=== PATIENT | male | born 1975 | race African-American/Black ===

== ENCOUNTER 2018-03-05 08:34 | Inpatient (IN) | payer OTHER ==
[2018-03-05 09:11] VITALS: BMI 20.9
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
[2018-03-05] MEDS ORDERED: chlordiazePOXIDE HCL 25 MG CAPSULE PO ONE (19:39)
[2018-03-05] MEDS ORDERED: chlordiazePOXIDE HCL 25 MG CAPSULE PO PRN (19:39)
[2018-03-05] MEDS ORDERED: IBUPROFEN 400 MG TABLET (FP) PO PRN (19:40)
[2018-03-05] MEDS ORDERED: MAGNESIUM HYDROX 2400MG/30ML ORAL SUSPENSION 30 ML CUP PO PRN (19:40)
[2018-03-05] MEDS ORDERED: ACETAMINOPHEN 325 MG TABLET (FP) PO PRN ×2 (19:40→20:13)
[2018-03-05] MEDS ORDERED: MAG HYDROX/AL HYDROX/SIMETH 30 ML UNIT-DOSE CUP PO PRN (19:40)
[2018-03-05] MEDS ORDERED: MENTHOL/PHENOL 1 EACH UD MM PRN (19:40)
[2018-03-05] MEDS ORDERED: LOPERAMIDE HCL 2 MG CAPSULE PO PRN (19:40)
[2018-03-05] MEDS ORDERED: MAGNESIUM CITRATE 300 ML BOTTLE PO PRN (19:40)
[2018-03-05] MEDS ORDERED: NICOTINE POLACRILEX 2 MG GUM BUC PRN (19:40)
[2018-03-05] MEDS ORDERED: MELATONIN 5 MG TABLETS PO PRN (22:00)
[2018-03-05] MEDS: THIAMINE HCL 100 MG TABLET (FP) PO SCH (22:09)
[2018-03-05] MEDS: chlordiazePOXIDE HCL 25 MG CAPSULE PO SCH (22:16)
[2018-03-06] MEDS: chlordiazePOXIDE HCL 25 MG CAPSULE PO SCH ×4 (05:44→22:27)
[2018-03-06] MEDS: PRENATAL VITAMINS W/ FOLIC ACID TABLET (FP) PO SCH (10:24)
[2018-03-06] MEDS: NICOTINE 14 MG/24 HOURS TOPICAL PATCH TD SCH (10:25)
[2018-03-06 10:51] LABS: ALBUMIN 3.3 g/dl (3.4-5.0); ALK PHOS 79 U/L (45-117); ANION GAP 7 MMOL/L (8-16); BILIRUBIN,TOTAL 0.4 mg/dL (0.2-1); BLOOD UREA NITROGEN 11 mg/dL (7-18); CALCIUM 8.4 mg/dL (8.5-10.1); CHLORIDE 109 mmol/L (98-107); CO2 26 mmol/L (21-32); CREATININE 0.9 mg/dL (0.55-1.3); GLUCOSE,RANDOM 109 mg/dL (74-106); SGOT/AST 37 U/L (15-37); SGPT/ALT 56 U/L (13-61); SODIUM 142 mmol/L (136-145); TOT PROT 6.5 g/dl (6.4-8.2)
[2018-03-06 11:08] LABS: HEMATOCRIT 42.2 % (35.4-49); HEMOGLOBIN 13.6 GM/dL (11.7-16.9); MCH 30.3 pg (25.7-33.7); MCHC 32.3 g/dl (32.0-35.9); MEAN CELL VOLUME 93.8 fl (80-96); PLATELET COUNT 164 K/MM3 (134-434); RDW 14.5 % (11.9-15.9); WHITE BLOOD COUNT 6.2 K/mm3 (4.0-10.0)
--- NOTE | 2018-03-06 16:14 | PN ---
S CIWA - CIWA Score Nausea/Vomitin Muscle Tremors: 4-Moderate,w/Arms Extend Anxiety: 4-Mod. Anxious/Guarded Agitation: 4-Moderately Restless Paroxysmal Sweats: 3 Orientation: 0-Oriented Tacttile Disturbances: 0-None Auditory Disturbances: 0-None Visual Disturbances: 0-None Headache: 0-None Present CIWA-Ar Total Score: 17 BHS Progress Note (SOAP) Subjective: Anxious, interrupted sleep Objective: 03/06/18 16:13 Last Vital Signs Temp Pulse Resp BP Pulse Ox 97.4 F L 64 18 119/64 03/06/18 13:32 03/06/18 13:32 03/06/18 13:32 03/06/18 13:32 Laboratory Tests 03/06/18 03/06/18 03/06/18 07:50 07:50 07:50 WBC 6.2 RBC 4.50 Hgb 13.6 Hct 42.2 MCV 93.8 MCH 30.3 MCHC 32.3 RDW 14.5 Plt Count 164 MPV 11.0 Sodium 142 Potassium 4.0 Chloride 109 H Carbon Dioxide 26 Anion Gap 7 L BUN 11 Creatinine 0.9 Creat Clearance w eGFR > 60 Random Glucose 109 H Calcium 8.4 L Total Bilirubin 0.4 AST 37 ALT 56 Alkaline Phosphatase 79 Total Protein 6.5 Albumin 3.3 L RPR Titer HIV 1&2 Antibody Screen Negative HIV P24 Antigen Negative 03/06/18 07:50 WBC RBC Hgb Hct MCV MCH MCHC RDW Plt Count MPV Sodium Potassium Chloride Carbon Dioxide Anion Gap BUN Creatinine Creat Clearance w eGFR Random Glucose Calcium Total Bilirubin AST ALT Alkaline Phosphatase Total Protein Albumin RPR Titer Nonreactive HIV 1&2 Antibody Screen HIV P24 Antigen Labs reviewed Assessment: 03/06/18 16:14 Withdrawal symptoms Plan: Continue detox Encouraged PO water intake
--- NOTE | 2018-03-06 16:58 | EKG ---
Test Reason : Blood Pressure : / mmHG Vent. Rate : 069 BPM Atrial Rate : 069 BPM P-R Int : 138 ms QRS Dur : 086 ms QT Int : 392 ms P-R-T Axes : 072 078 066 degrees QTc Int : 420 ms SINUS RHYTHM WITH MARKED SINUS ARRHYTHMIA NONSPECIFIC ST ABNORMALITY ABNORMAL ECG NO PREVIOUS ECGS AVAILABLE Confirmed by MD Jeyson, Chapito ([id number]) on 03/06/2018 4:58:28 PM Referred By: Confirmed By:Chapito Benítez MD
[2018-03-06] MEDS: THIAMINE HCL 100 MG TABLET (FP) PO SCH (22:27)
[2018-03-07] MEDS: chlordiazePOXIDE HCL 25 MG CAPSULE PO SCH ×3 (05:50→17:17)
[2018-03-07] MEDS: NICOTINE 14 MG/24 HOURS TOPICAL PATCH TD SCH (10:20)
[2018-03-07] MEDS: PRENATAL VITAMINS W/ FOLIC ACID TABLET (FP) PO SCH (10:20)
--- NOTE | 2018-03-07 14:56 | PN ---
[facility] CIWA - CIWA Score Nausea/Vomitin-No Nausea/No Vomiting Muscle Tremors: None Anxiety: 4-Mod. Anxious/Guarded Agitation: 3 Paroxysmal Sweats: 3 Orientation: 2-Disoriented Date<2 days Tacttile Disturbances: 3-Moderate Itch/Numb/Burn Auditory Disturbances: 0-None Visual Disturbances: 0-None Headache: 0-None Present CIWA-Ar Total Score: 15 BHS Progress Note (SOAP) Subjective: Sweating, Anxious. Objective: PATIENT A & O X 2 (UNCERTAIN ABOUT CURRENT DAY / DATE). PATIENT OBSERVED AMBULATING ON UNIT. NO ACUTE DISTRESS. 03/07/18 14:56 Vital Signs Temperature 98.6 F 03/07/18 13:29 Pulse Rate 70 03/07/18 13:29 Respiratory Rate 18 03/07/18 13:29 Blood Pressure 122/76 03/07/18 13:29 O2 Sat by Pulse Oximetry (%) Laboratory Tests 03/06/18 03/06/18 03/06/18 07:50 07:50 07:50 WBC 6.2 RBC 4.50 Hgb 13.6 Hct 42.2 MCV 93.8 MCH 30.3 MCHC 32.3 RDW 14.5 Plt Count 164 MPV 11.0 Sodium 142 Potassium 4.0 Chloride 109 H Carbon Dioxide 26 Anion Gap 7 L BUN 11 Creatinine 0.9 Creat Clearance w eGFR > 60 Random Glucose 109 H Calcium 8.4 L Total Bilirubin 0.4 AST 37 ALT 56 Alkaline Phosphatase 79 Total Protein 6.5 Albumin 3.3 L RPR Titer HIV 1&2 Antibody Screen Negative HIV P24 Antigen Negative 03/06/18 07:50 WBC RBC Hgb Hct MCV MCH MCHC RDW Plt Count MPV Sodium Potassium Chloride Carbon Dioxide Anion Gap BUN Creatinine Creat Clearance w eGFR Random Glucose Calcium Total Bilirubin AST ALT Alkaline Phosphatase Total Protein Albumin RPR Titer Nonreactive HIV 1&2 Antibody Screen HIV P24 Antigen LABS NOTED. Assessment: 03/07/18 14:56 WITHDRAWAL SYMPTOMS. Plan: CONTINUE DETOX.
[2018-03-07] MEDS: chlordiazePOXIDE 5 MG CAPSULE PO SCH (22:14)
[2018-03-07] MEDS: THIAMINE HCL 100 MG TABLET (FP) PO SCH (22:15)
[2018-03-08] MEDS: chlordiazePOXIDE 5 MG CAPSULE PO SCH (05:29)
[2018-03-08 09:10] VITALS: BP 120/86; PULSE 74; TEMP 97.4
--- NOTE | 2018-03-08 10:28 | DS ---
[facility] Detox Discharge Summary Admission Date: 03/05/18 Discharge Date: 03/08/18 - History Present History: Alcohol Dependence Additional Comments: 42 years old male admitted on 03/05/18 for alcohol withdrawal stabilization patient reported feeling better able to manage mild alcohol withdrawal sx preferred to go home today left hand cast intact fingers warm no swell denies pain elevating left arm above head patient acknowledged follow up with provider in the community within 4-6-8 weeks for fracture healing process and cast removal ambulate with cane transportation arranged from facility to home Pertinent Past History: patient stated that [facility] near by him and services were satisfied taking depakote for bipolar disorder admitted non adherence strong recommend visiting [facility] community health services for medical mental and addiction issues - Physical Exam Results Vital Signs: Vital Signs Temperature 97.4 F L 03/08/18 09:09 Pulse Rate 74 03/08/18 09:09 Respiratory Rate 18 03/08/18 09:09 Blood Pressure 120/86 03/08/18 09:09 O2 Sat by Pulse Oximetry (%) Pertinent Admission Physical Exam Findings: alcohol withdrawal sx Vital Signs Temperature 97.4 F L 03/08/18 09:09 Pulse Rate 74 03/08/18 09:09 Respiratory Rate 18 03/08/18 09:09 Blood Pressure 120/86 03/08/18 09:09 O2 Sat by Pulse Oximetry (%) Laboratory Last Values WBC 6.2 K/mm3 (4.0-10.0) 03/06/18 07:50 RBC 4.50 M/mm3 (4.00-5.60) 03/06/18 07:50 Hgb 13.6 GM/dL (11.7-16.9) 03/06/18 07:50 Hct 42.2 % (35.4-49) 03/06/18 07:50 MCV 93.8 fl (80-96) 03/06/18 07:50 MCH 30.3 pg (25.7-33.7) 03/06/18 07:50 MCHC 32.3 g/dl (32.0-35.9) 03/06/18 07:50 RDW 14.5 % (11.9-15.9) 03/06/18 07:50 Plt Count 164 K/MM3 (134-434) 03/06/18 07:50 MPV 11.0 fl (7.5-11.1) 03/06/18 07:50 Sodium 142 mmol/L (136-145) 03/06/18 07:50 Potassium 4.0 mmol/L (3.5-5.1) 03/06/18 07:50 Chloride 109 mmol/L (98-107) H 03/06/18 07:50 Carbon Dioxide 26 mmol/L (21-32) 03/06/18 07:50 Anion Gap 7 MMOL/L (8-16) L 03/06/18 07:50 BUN 11 mg/dL (7-18) 03/06/18 07:50 Creatinine 0.9 mg/dL (0.55-1.3) 03/06/18 07:50 Creat Clearance w eGFR > 60 (>60) 03/06/18 07:50 Random Glucose 109 mg/dL (74-106) H 03/06/18 07:50 Calcium 8.4 mg/dL (8.5-10.1) L 03/06/18 07:50 Total Bilirubin 0.4 mg/dL (0.2-1) 03/06/18 07:50 AST 37 U/L (15-37) 03/06/18 07:50 ALT 56 U/L (13-61) 03/06/18 07:50 Alkaline Phosphatase 79 U/L (45-117) 03/06/18 07:50 Total Protein 6.5 g/dl (6.4-8.2) 03/06/18 07:50 Albumin 3.3 g/dl (3.4-5.0) L 03/06/18 07:50 RPR Titer Nonreactive (NONREACTIVE) 03/06/18 07:50 HIV 1&2 Antibody Screen Negative 03/06/18 07:50 HIV P24 Antigen Negative 03/06/18 07:50 lab noted encourage ca++ rich food - Treatment Hospital Course: Detox Protocol Followed, Detoxed Safely, Responded well, Discharged Condition Good, Rehab Referral Accepted Patient has Accepted a Rehab Referral to: [facility] services - Medication Discharge Medications: Ambulatory Orders Benztropine Mesylate [Cogentin -] 2 mg PO DAILY 03/05/18 Divalproex [Depakote -] 500 mg PO BID 03/05/18 Fluphenazine HCl [Prolixin -] 5 mg PO TID 03/05/18 - Diagnosis (1) Bipolar II disorder Current Visit: Yes Status: Suspected (2) Alcohol dependence with uncomplicated withdrawal Current Visit: Yes Status: Acute (3) Nicotine dependence, uncomplicated Current Visit: Yes Status: Acute Qualifiers: Nicotine product type: cigarettes Qualified Code(s): F17.210 - Nicotine dependence, cigarettes, uncomplicated (4) Metacarpal bone fracture Current Visit: Yes Status: Acute Qualifiers: Encounter type: subsequent encounter Metacarpal bone: unspecified metacarpal Fracture type: closed Metacarpal location: unspecified portion of metacarpal Fracture morphology: unspecified fracture morphology Fracture healing: with nonunion Qualified Code(s): S62.309K - Unspecified fracture of unspecified metacarpal bone, subsequent encounter for fracture with nonunion (5) Status post amputation of finger Current Visit: Yes Status: Chronic Qualifiers: Laterality: unspecified laterality Qualified Code(s): Z89.029 - Acquired absence of unspecified finger(s) - AMA Did Patient Leave Against Medical Advice: No
[2018-03-08] MEDS ORDERED: chlordiazePOXIDE HCL 10 MG CAPSULE PO SCH (23:00)
== END 2018-03-08 10:30 | disposition home or self-care (01) | DRG 775 ==
LOC: YASAS 08:34 → Y3N 19:36
PROC: HZ2ZZZZ Detoxification Services for Substance Abuse Treatment (ICD-10-PCS; principal; 2018-03-05)
DX: F10.230 Alcohol dependence with withdrawal, uncomplicated (principal); F12.20 Cannabis dependence, uncomplicated; F17.210 Nicotine dependence, cigarettes, uncomplicated; F31.81 Bipolar II disorder; H55.00 Unspecified nystagmus; S62.39 Other fracture of other metacarpal bone; X58.XXXD Exposure to other specified factors, subsequent encounter; Z89.029 Acquired absence of unspecified finger(s); Z86.69 Personal history of other diseases of the nervous system and sense organs
CPT/HCPCS: 36415; 80053; 85027; 86593; 87389; 93005; 93010

== ENCOUNTER 2018-03-05 10:27 | Emergency (ER) | payer OTHER ==
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
[2018-03-05 11:07] VITALS: BMI 21.6
[2018-03-05] MEDS ORDERED: ACETAMINOPHEN 325 MG TABLET (FP) PO ONE (12:04)
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
[2018-03-05] MEDS ORDERED: ACETAMINOPHEN 325 MG TABLET (FP) ONE (12:26)
[2018-03-05 12:43] LABS: BASO % 0.4 % (0-2.0); HEMATOCRIT 38.2 % (35.4-49); HEMOGLOBIN 12.4 GM/dL (11.7-16.9); MCH 30.1 pg (25.7-33.7); MCHC 32.4 g/dl (32.0-35.9); MEAN PLT VOLUME 10.1 fl (7.5-11.1); MONO % 9.2 % (3.8-10.2); NEUT % 52.4 % (42.8-82.8); PLATELET COUNT 142 K/MM3 (134-434); RBC 4.11 M/mm3 (4.00-5.60); RDW 14.1 % (11.9-15.9); WHITE BLOOD COUNT 5.6 K/mm3 (4.0-10.0)
[2018-03-05 13:37] LABS: ALBUMIN 3.2 g/dl (3.4-5.0); ALK PHOS 77 U/L (45-117); ANION GAP 6 MMOL/L (8-16); BILIRUBIN,TOTAL 0.3 mg/dL (0.2-1); BLOOD UREA NITROGEN 10 mg/dL (7-18); CALCIUM 8.1 mg/dL (8.5-10.1); CHLORIDE 108 mmol/L (98-107); CO2 25 mmol/L (21-32); CREATININE 0.8 mg/dL (0.55-1.3); GLUCOSE,RANDOM 82 mg/dL (74-106); POTASSIUM 3.9 mmol/L (3.5-5.1); SGOT/AST 47 U/L (15-37); SGPT/ALT 59 U/L (13-61); SODIUM 139 mmol/L (136-145); TOT PROT 6.2 g/dl (6.4-8.2)
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
[2018-03-05 15:20] VITALS: BP 100/60; PULSE 80; TEMP 98.7
[2018-03-06 00:21] LABS: COCAINE, UR NEGATIVE ng/ml (CUTOFF=300); METHADONE, UR NEGATIVE ng/ml (CUTOFF=300); OPIATES, URI NEGATIVE ng/ml (CUTOFF=300); PHENCYCLIDINE,URINE NEGATIVE ng/ml (CUTOFF=25); URINE AMPHETAMINES NEGATIVE ng/ml (CUTOFF=500); URINE BARBITURATES NEGATIVE ng/ml (CUTOFF=200); URINE BENZODIAZEPINES NEGATIVE ng/ml (CUTOFF=200)
== END 2018-03-05 16:13 | disposition home or self-care (01) ==
LOC: JER 10:27
PROC: 2W3DX1Z Immobilization of Left Lower Arm using Splint (ICD-10-PCS; principal; 2018-03-05)
DX: S62.315A Displaced fracture of base of fourth metacarpal bone, left hand, initial encounter for closed fracture (principal); S62.317A Displaced fracture of base of fifth metacarpal bone, left hand, initial encounter for closed fracture; W10.8XXA Fall (on) (from) other stairs and steps, initial encounter; Y93.89 Activity, other specified; Y92.038 Other place in apartment as the place of occurrence of the external cause; Y99.8 Other external cause status; F10.20 Alcohol dependence, uncomplicated; F12.20 Cannabis dependence, uncomplicated; F19.20 Other psychoactive substance dependence, uncomplicated
CPT/HCPCS: 36415; 70450-TC; 73130-TC-LT-FY; 80053; 80307; 82550; 82553; 84484; 85025; 99282-25

== ENCOUNTER 2018-04-09 09:03 | Inpatient (IN) | payer OTHER ==
[2018-04-09 09:17] VITALS: BMI 22.6
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
[2018-04-09] MEDS ORDERED: P-EPHED 60MG/TRIPROLIDI 2.5MG TABLET PO PRN (13:50)
[2018-04-09] MEDS ORDERED: guaiFENesin/D-METHORPHAN HB 10 ML UNIT-DOSE CUPS PO PRN (13:50)
[2018-04-09] MEDS ORDERED: MAGNESIUM HYDROX 2400MG/30ML ORAL SUSPENSION 30 ML CUP PO PRN (13:50)
[2018-04-09] MEDS ORDERED: MAG HYDROX/AL HYDROX/SIMETH 30 ML UNIT-DOSE CUP PO PRN (13:50)
[2018-04-09] MEDS ORDERED: MENTHOL/PHENOL 1 EACH UD MM PRN (13:50)
[2018-04-09] MEDS ORDERED: NICOTINE POLACRILEX 2 MG GUM BUC PRN (13:50)
[2018-04-09] MEDS ORDERED: LOPERAMIDE HCL 2 MG CAPSULE PO PRN (13:50)
[2018-04-09] MEDS ORDERED: MAGNESIUM CITRATE 300 ML BOTTLE PO PRN (13:50)
[2018-04-09] MEDS ORDERED: IBUPROFEN 400 MG TABLET (FP) PO PRN (13:50)
[2018-04-09] MEDS ORDERED: ACETAMINOPHEN 325 MG TABLET (FP) PO PRN (13:50)
[2018-04-09] MEDS ORDERED: chlordiazePOXIDE HCL 25 MG CAPSULE PO PRN (13:50)
[2018-04-09] MEDS ORDERED: chlordiazePOXIDE HCL 25 MG CAPSULE PO ONE (15:15)
[2018-04-09] MEDS: NICOTINE 14 MG/24 HOURS TOPICAL PATCH TD SCH (15:41)
[2018-04-09] MEDS: chlordiazePOXIDE HCL 25 MG CAPSULE PO SCH ×2 (18:02→22:24)
[2018-04-09] MEDS ORDERED: MELATONIN 5 MG TABLETS PO PRN (22:00)
[2018-04-09] MEDS: THIAMINE HCL 100 MG TABLET (FP) PO SCH (22:24)
[2018-04-10] MEDS: chlordiazePOXIDE HCL 25 MG CAPSULE PO SCH ×4 (05:30→22:23)
[2018-04-10] MEDS: NICOTINE 14 MG/24 HOURS TOPICAL PATCH TD SCH (10:15)
[2018-04-10] MEDS: PRENATAL VITAMINS W/ FOLIC ACID TABLET (FP) PO SCH (10:20)
[2018-04-10 10:54] LABS: HEMATOCRIT 34.7 % (35.4-49); HEMOGLOBIN 11.6 GM/dL (11.7-16.9); MCH 32.2 pg (25.7-33.7); MCHC 33.6 g/dl (32.0-35.9); MEAN CELL VOLUME 95.9 fl (80-96); MEAN PLT VOLUME 11.4 fl (7.5-11.1); PLATELET COUNT 164 K/MM3 (134-434); RBC 3.61 M/mm3 (4.00-5.60); RDW 15.4 % (11.9-15.9); WHITE BLOOD COUNT 6.8 K/mm3 (4.0-10.0)
[2018-04-10 11:25] LABS: ALBUMIN 3.4 g/dl (3.4-5.0); ALK PHOS 72 U/L (45-117); ANION GAP 9 MMOL/L (8-16); BILIRUBIN,TOTAL 0.2 mg/dL (0.2-1); BLOOD UREA NITROGEN 13 mg/dL (7-18); CALCIUM 8.9 mg/dL (8.5-10.1); CHLORIDE 104 mmol/L (98-107); CO2 29 mmol/L (21-32); CREATININE 0.8 mg/dL (0.55-1.3); GLUCOSE,RANDOM 91 mg/dL (74-106); POTASSIUM 3.9 mmol/L (3.5-5.1); SGOT/AST 12 U/L (15-37); SGPT/ALT 22 U/L (13-61); SODIUM 141 mmol/L (136-145); TOT PROT 6.9 g/dl (6.4-8.2)
--- NOTE | 2018-04-10 13:07 | PN ---
[facility] CIWA - CIWA Score Nausea/Vomitin-No Nausea/No Vomiting Muscle Tremors: 3 Anxiety: 3 Agitation: 0-Normal Activity Paroxysmal Sweats: 2 Orientation: 2-Disoriented Date<2 days Tacttile Disturbances: 0-None Auditory Disturbances: 0-None Visual Disturbances: 3-Moderate Sensitivity Headache: 0-None Present CIWA-Ar Total Score: 13 BHS Progress Note (SOAP) Subjective: Tremors, Fatigue, Sweating. Objective: PATIENT A & O X 3. IN NO ACUTE DISTRESS. 04/10/18 13:08 Vital Signs Temperature 98.0 F 04/10/18 09:03 Pulse Rate 64 04/10/18 09:03 Respiratory Rate 16 04/10/18 09:03 Blood Pressure 110/58 L 04/10/18 09:03 O2 Sat by Pulse Oximetry (%) Laboratory Tests 04/10/18 04/10/18 04/10/18 05:45 05:45 05:45 WBC 6.8 RBC 3.61 L Hgb 11.6 L Hct 34.7 L D MCV 95.9 MCH 32.2 MCHC 33.6 RDW 15.4 Plt Count 164 MPV 11.4 H Sodium 141 Potassium 3.9 Chloride 104 Carbon Dioxide 29 Anion Gap 9 BUN 13 Creatinine 0.8 Creat Clearance w eGFR > 60 Random Glucose 91 Calcium 8.9 Total Bilirubin 0.2 AST 12 L ALT 22 Alkaline Phosphatase 72 Total Protein 6.9 Albumin 3.4 RPR Titer Nonreactive LABS NOTED. Assessment: 04/10/18 13:09 WITHDRAWAL SYMPTOMS. ANEMIA. Plan: CONTINUE DETOX. INCREASE DAILY PO FLUID INTAKE. PATIENT CURRENTLY RECEIVING DAILY MVI CONTAINING B VITAMINS AND IRON WHILE ADMITTED FOR DETOX.
--- NOTE | 2018-04-10 14:28 | CONSULT ---
[facility] Psychiatric Consult - Data Date of interview: 04/10/18 Admission source: [facility] Identifying data: Three visits at bedside. Patient refuses to be interviewed. Nursing staff is made aware. Consult deferred.
[2018-04-10] MEDS: THIAMINE HCL 100 MG TABLET (FP) PO SCH (22:23)
[2018-04-11] MEDS: chlordiazePOXIDE HCL 25 MG CAPSULE PO SCH ×2 (05:54→10:06)
[2018-04-11] MEDS: PRENATAL VITAMINS W/ FOLIC ACID TABLET (FP) PO SCH (10:05)
[2018-04-11] MEDS: NICOTINE 14 MG/24 HOURS TOPICAL PATCH TD SCH (10:05)
--- NOTE | 2018-04-11 16:20 | PN ---
[facility] CIWA - CIWA Score Nausea/Vomitin-No Nausea/No Vomiting Muscle Tremors: 1-None Visible, but [place] Anxiety: 0-No Anxiety, at Ease Agitation: 1-Slight > Activity Paroxysmal Sweats: No Perspiration Orientation: 0-Oriented Tacttile Disturbances: 0-None Auditory Disturbances: 0-None Visual Disturbances: 0-None Headache: 0-None Present CIWA-Ar Total Score: 2 BHS Progress Note (SOAP) Subjective: states he is doing well with alcohol detox protocol O: Vital Signs - 24 hr 04/10/18 04/10/18 04/11/18 17:42 20:53 00:30 Temperature 98.2 F 97.7 F Pulse Rate 93 H 75 Respiratory 18 18 18 Rate Blood Pressure 127/78 138/51 L 04/11/18 04/11/18 04/11/18 07:29 09:12 13:40 Temperature 97.9 F 98.2 F 98.3 F Pulse Rate 67 88 85 Respiratory 18 19 18 Rate Blood Pressure 96/53 L 120/55 L 101/52 L Laboratory Tests 04/10/18 04/10/18 04/10/18 05:45 05:45 05:45 WBC 6.8 RBC 3.61 L Hgb 11.6 L Hct 34.7 L D MCV 95.9 MCH 32.2 MCHC 33.6 RDW 15.4 Plt Count 164 MPV 11.4 H Sodium 141 Potassium 3.9 Chloride 104 Carbon Dioxide 29 Anion Gap 9 BUN 13 Creatinine 0.8 Creat Clearance w eGFR > 60 Random Glucose 91 Calcium 8.9 Total Bilirubin 0.2 AST 12 L ALT 22 Alkaline Phosphatase 72 Total Protein 6.9 Albumin 3.4 RPR Titer Nonreactive a/p: continue alcohol detox protocol- pt doing well
[2018-04-11] MEDS: chlordiazePOXIDE 5 MG CAPSULE PO SCH ×2 (17:46→22:44)
[2018-04-11] MEDS: THIAMINE HCL 100 MG TABLET (FP) PO SCH (22:43)
[2018-04-12] MEDS: chlordiazePOXIDE 5 MG CAPSULE PO SCH ×2 (05:16→10:31)
[2018-04-12] MEDS: PRENATAL VITAMINS W/ FOLIC ACID TABLET (FP) PO SCH (10:31)
[2018-04-12] MEDS: NICOTINE 14 MG/24 HOURS TOPICAL PATCH TD SCH (10:31)
--- NOTE | 2018-04-12 16:19 | PN ---
BHS Progress Note (SOAP) Subjective: Patient Denies Any Current Withdrawal / Detox Symptoms and Reports That He Feels Well Overall At This Time. Objective: PATIENT A & O X 3. IN NO ACUTE DISTRESS. 04/12/18 16:17 Vital Signs Temperature 98.5 F 04/12/18 13:27 Pulse Rate 89 04/12/18 13:27 Respiratory Rate 18 04/12/18 13:27 Blood Pressure 125/62 04/12/18 13:27 O2 Sat by Pulse Oximetry (%) Laboratory Tests 04/10/18 04/10/18 04/10/18 05:45 05:45 05:45 WBC 6.8 RBC 3.61 L Hgb 11.6 L Hct 34.7 L D MCV 95.9 MCH 32.2 MCHC 33.6 RDW 15.4 Plt Count 164 MPV 11.4 H Sodium 141 Potassium 3.9 Chloride 104 Carbon Dioxide 29 Anion Gap 9 BUN 13 Creatinine 0.8 Creat Clearance w eGFR > 60 Random Glucose 91 Calcium 8.9 Total Bilirubin 0.2 AST 12 L ALT 22 Alkaline Phosphatase 72 Total Protein 6.9 Albumin 3.4 RPR Titer Nonreactive LABS NOTED. Assessment: 04/12/18 16:18 WITHDRAWAL SYMPTOMS. Plan: CONTINUE DETOX. PATIENT SCHEDULED FOR D/C TOMORROW.
[2018-04-12] MEDS: chlordiazePOXIDE HCL 10 MG CAPSULE PO SCH ×2 (18:23→22:16)
[2018-04-12] MEDS: THIAMINE HCL 100 MG TABLET (FP) PO SCH (22:16)
[2018-04-13] MEDS: chlordiazePOXIDE HCL 10 MG CAPSULE PO SCH (05:08)
--- NOTE | 2018-04-13 08:45 | DS ---
[facility] Detox Discharge Summary Admission Date: 04/09/18 Discharge Date: 04/13/18 - History Present History: Alcohol Dependence, Cannabis Dependence - Physical Exam Results Vital Signs: Vital Signs Temperature 97.9 F 04/13/18 06:00 Pulse Rate 72 04/13/18 06:00 Respiratory Rate 16 04/13/18 06:00 Blood Pressure 100/58 L 04/13/18 06:00 O2 Sat by Pulse Oximetry (%) - Treatment Hospital Course: Detox Protocol Followed, Detoxed Safely, Responded well, Discharged Condition Good, Rehab Referral Accepted - Medication Discharge Medications: Ambulatory Orders Benztropine Mesylate [Cogentin -] 2 mg PO DAILY 03/05/18 Divalproex [Depakote -] 500 mg PO BID 03/05/18 Fluphenazine HCl [Prolixin -] 5 mg PO TID 03/05/18 - Diagnosis (1) Alcohol dependence with uncomplicated withdrawal Current Visit: Yes Status: Chronic (2) Anemia Current Visit: Yes Status: Acute (3) Nicotine dependence, uncomplicated Current Visit: Yes Status: Chronic Qualifiers: Nicotine product type: cigarettes Qualified Code(s): F17.210 - Nicotine dependence, cigarettes, uncomplicated (4) Status post amputation of finger Current Visit: Yes Status: Chronic Qualifiers: Laterality: unspecified laterality Qualified Code(s): Z89.029 - Acquired absence of unspecified finger(s) (5) Hx of seizure disorder Current Visit: Yes Status: Suspected (6) Metacarpal bone fracture Current Visit: No Status: Acute Qualifiers: Encounter type: subsequent encounter Metacarpal bone: unspecified metacarpal Fracture type: closed Metacarpal location: unspecified portion of metacarpal Fracture morphology: unspecified fracture morphology Fracture healing: with nonunion Qualified Code(s): S62.309K - Unspecified fracture of unspecified metacarpal bone, subsequent encounter for fracture with nonunion (7) Nystagmus Current Visit: Yes Status: Acute (8) Cannabis dependence, uncomplicated Current Visit: Yes Status: Chronic (9) Bipolar II disorder Current Visit: No Status: Suspected - AMA Did Patient Leave Against Medical Advice: No [facility]
[2018-04-13 09:39] VITALS: BP 131/59; PULSE 114; TEMP 98.1
== END 2018-04-13 08:58 | disposition home or self-care (01) | DRG 775 ==
LOC: YASAS 09:03 → Y6N 14:35
PROVIDERS: ADMIT Neuromusculoskeletal Medicine & OMM; ATTEND Neuromusculoskeletal Medicine & OMM
PROC: HZ2ZZZZ Detoxification Services for Substance Abuse Treatment (ICD-10-PCS; principal; 2018-04-09)
DX: F10.230 Alcohol dependence with withdrawal, uncomplicated (principal); F12.20 Cannabis dependence, uncomplicated; F17.210 Nicotine dependence, cigarettes, uncomplicated; F31.81 Bipolar II disorder; D64.9 Anemia, unspecified; H55.00 Unspecified nystagmus; Z89.029 Acquired absence of unspecified finger(s); Z86.69 Personal history of other diseases of the nervous system and sense organs
CPT/HCPCS: 36415; 80053; 85027; 86593

== ENCOUNTER 2018-09-18 20:38 | Emergency (ER) | payer OTHER ==
[2018-09-18 20:49] VITALS: BP 118/79; PULSE 50; TEMP 98.2; BMI 21.4
--- NOTE | 2018-09-18 20:50 | PDOC ---
Rapid Medical Evaluation Time Seen by Provider: 09/18/18 20:47 Medical Evaluation: Allergies Allergy/AdvReac Type Severity Reaction Status Date / Time No Known Allergies Allergy Verified 09/18/18 20:41 09/18/18 20:48 Pt c/o: sent by [facility] for freedom leg swelling, no other complaints Pt on brief exam: 2+ pitting edema to freedom lower extremities distal of patellas, warm and 2+ pedal pulses Pt ordered for: cbc, comp Pt to proceed to the ED Discharge Disposition - Diagnosis Lower extremity edema, Eloped from emergency department - Discharge Dispostion Disposition: ELOPED Condition at time of disposition: Unchanged/Unknown - Referrals - Patient Instructions - Post Discharge Activity
== END 2018-09-18 21:51 | disposition left against medical advice (07) ==
LOC: JER 20:38
DX: M79.89 Other specified soft tissue disorders (principal)
CPT/HCPCS: 99281-25